=== PATIENT | male | born 1940 | race Caucasian/White ===

== ENCOUNTER 2023-05-03 11:58 | Outpatient (OUT) | payer MEDICARE, SELFPAY ==
--- NOTE | 2023-05-03 | XR_ITS ---
The [address] [address] Patient Name: ALISSA MARAVILLA MRN: [id number] date: 1940 Sex: M Assigned Patient Location: RAD Current Patient Location: RAD Accession/Order Number: [id number] Exam Date: 05/03/2023 10:00 Report Date: 05/03/2023 11:20 At the request of: JAY ARREDONDO Procedure: XR foot RT min 3V PROCEDURE: XR foot RT min 3V HISTORY: RIGHT TOE INJURY ; first toe pain since injury one month ago COMPARISON: None. FINDINGS: BONES:Suspect mild callus formation along lateral margin of first proximal phalanx mid diaphysis which may be secondary to nondisplaced fracture. Multifocal mild degenerative joint disease. Flattening of the plantar arch. SOFT TISSUES:[Calcifications within the plantar aponeurosis. EFFUSION:None visible. OTHER: Negative. XR/XR foot RT min 3V IMPRESSION: 1. Suspect changes of early bone healing from nondisplaced, occult first proximal phalanx fracture. Electronically authenticated by: MARISOL CHAN Date: 05/03/2023 11:20
--- NOTE | 2023-05-03 | XR_ITS ---
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 No bone fracture dislocation. SOFT TISSUES:Mild surrounding soft tissue swelling. EFFUSION:None visible. OTHER: Negative. XR/XR ankle LT min 3V IMPRESSION: 1. Stable surgical changes without evidence of hardware failure or change in alignment. Electronically authenticated by: MARISOL CHAN Date: 05/03/2023 11:22
== END 2023-05-03 11:59 | disposition home or self-care (01) ==
LOC: RAD 11:58
PROVIDERS: Visit Provider Podiatrist Foot & Ankle Surgery
DX: M79.674 Pain in right toe(s) (principal); M25.572 Pain in left ankle and joints of left foot
CPT/HCPCS: 73610; 73630

== ENCOUNTER 2024-09-11 11:07 | Outpatient (OUT) | payer MEDICARE, SELFPAY ==
--- NOTE | 2024-09-11 | XR_ITS ---
The [address] [address] Patient Name: ALISSA MARAVILLA MRN: [id number] date: 1940 Sex: M Assigned Patient Location: Current Patient Location: Accession/Order Number: [id number] Exam Date: 09/12/2024 10:23 Report Date: 09/12/2024 10:28 At the request of: JAY ARREDONDO DPLata Procedure: XR ankle KRISHNA min 3V BILATERAL ANKLES - 3 views each COMPARISON: Left ankle 05/03/2023 and right foot 05/03/2023 CLINICAL DATA: Follow-up of left ankle prosthesis. Right ankle pain for the past 6 months. Weightbearing AP, lateral and oblique views were obtained on both sides. A left ankle prosthesis is again visualized. There is no interval change in appearance of the hardware from the comparison. No developing fractures or dislocation are seen. Similar degenerative changes are noted. Mild soft tissue swelling is present. XR/XR ankle KRISHNA min 3V IMPRESSION: STABLE LEFT ANKLE HARDWARE. MILD DEGENERATIVE CHANGES. NO ACUTE BONY FINDINGS. Impression dictated by: Rosy Call M.D.09/12/2024 10:28 AM Dictation Location: [facility] Electronically authenticated by: [id number] Y Date: 09/12/2024 10:28
--- NOTE | 2024-09-11 | XR_ITS ---
The [place] [id number] Patient Name: ALISSA MARAVILLA MRN: [id number] date: 1940 Sex: M Assigned Patient Location: Current Patient Location: Accession/Order Number: [id number] Exam Date: 09/12/2024 10:17 Report Date: 09/12/2024 10:23 At the request of: JAY ARREDONDO DPLata Procedure: XR foot RT min 3V RIGHT FOOT - 3 views CLINICAL DATA: Right foot pain for the past 6 months at the arch. No reported injury. COMPARISON: 05/03/2023 Weightbearing AP, lateral and oblique views were obtained. There is flattening of the plantar arch. A possible old fracture of the proximal phalanx left first toe in the excluded. No acute fractures or dislocation are seen. There is minor spurring at the dorsum of the tarsals as well as the calcaneus. Calcification is again visualized at the plantar aponeurosis. No focal soft tissue swelling is noted. XR/XR foot RT min 3V IMPRESSION: NO ACUTE BONY FINDINGS OR INTERVAL CHANGE. Impression dictated by: Rosy Call M.D.09/12/2024 10:23 AM Dictation Location: [email or web address] Electronically authenticated by: [id number] Y Date: 09/12/2024 10:23
== END 2024-09-11 11:08 | disposition home or self-care (01) ==
LOC: EC 11:08
PROVIDERS: Visit Provider Podiatrist Foot & Ankle Surgery
DX: M25.571 Pain in right ankle and joints of right foot (principal); M25.572 Pain in left ankle and joints of left foot; Z96.662 Presence of left artificial ankle joint
CPT/HCPCS: 73610; 73630